=== PATIENT | female | born 1985 | race Caucasian/White ===

== ENCOUNTER 2024-08-11 20:13 | Emergency (ER) | payer OTHER ==
[2024-08-11 20:20] VITALS: BP 85/58; PULSE 125; RESP 20; TEMP 97.7
[2024-08-11] MEDS ORDERED: SODIUM CHLORIDE 0.9% 1,000 ML IV STA (20:48)
[2024-08-11] MEDS ORDERED: KETOROLAC 15 MG/ML 1 ML VIAL IVP STA (20:48)
--- NOTE | 2024-08-11 20:50 | ED ---
General Adult HPI - General Chief complaint: Upper Respiratory Infection Stated complaint: chest pain Time Seen by Provider: 08/11/24 20:29 Source: patient, RN notes reviewed Mode of arrival: ambulatory Limitations: no limitations - History of Present Illness Initial comments: This is a 38-year-old female presenting for multiple complaints. Endorses right chest tightness and shortness of breath x 2 weeks. Endorses cough with phlegm production x 1 day along with associated right chest pain that worsens with coughing/inspiration. Also mentions headache described as "brain freeze" x 1 day. Endorses dizziness and vision changes with position change when standing. States her right foot has been asleep for the past 2 hours. Endorses sharp, constant, diffuse abdominal pain (9/10) x 1 hour with decreased appetite. Denies fever, chills, fatigue, radiating pain, diaphoresis, hemoptysis, extremity weakness, upper extremity or facial paresthesia, N/V/D, hematochezia, melena. Onset/Timin -: week(s) Location: abdomen Radiation: non-radiation Severity scale (1-10): 9 Quality: sharp Consistency: constant Associated Symptoms: cough, headaches, loss of appetite, shortness of breath Treatments Prior to Arrival: none - Related Data Previous Rx's Medication Instructions Recorded Amoxic-Pot Clav 875-125Mg 1 tab PO BID 1 Days #14 tab 08/11/24 [Augmentin 875-125] Azithromycin [Zithromax Z Pack] 0 tab PO DIRECTED #6 tab 08/11/24 Allergies Allergy/AdvReac Type Severity Reaction Status Date / Time No Known Allergies Allergy Verified 08/11/24 20:20 Review of Systems ROS Statement: Those systems with pertinent positive or pertinent negative responses have been documented in the HPI. ROS Other: All systems not noted in ROS Statement are negative. Past Medical History Past Medical History: No Reported History History of Any Multi-Drug Resistant Organisms: MRSA Date of last positivie culture/infection: 2021 MDRO Source:: right elbow Past Surgical History: No Surgical Hx Reported Past Psychological History: No Psychological Hx Reported Smoking Status: Current every day smoker Past Alcohol Use History: None Reported Past Drug Use History: None Reported General Exam Limitations: no limitations General appearance: alert, in no apparent distress Head exam: Present: atraumatic, normocephalic, normal inspection Eye exam: Present: normal appearance, PERRL, EOMI. Absent: scleral icterus, conjunctival injection, periorbital swelling ENT exam: Present: normal exam, mucous membranes moist Neck exam: Present: normal inspection. Absent: tenderness, meningismus, lymphadenopathy Respiratory exam: Present: normal lung sounds bilaterally, decreased breath sounds (Decreased lung sounds in right upper lobe). Absent: respiratory distress, wheezes, rales, rhonchi, stridor, accessory muscle use, prolonged expiratory Cardiovascular Exam: Present: regular rate, normal rhythm, normal heart sounds. Absent: systolic murmur, diastolic murmur, rubs, gallop, clicks GI/Abdominal exam: Present: soft, tenderness (Diffuse tenderness especially LUQ and epigastric region), rebound, rigid, diminished bowel sounds, hypoactive bowel sounds. Absent: distended, guarding Extremities exam: Present: normal inspection, full ROM, normal capillary refill, other (Bilateral upper extremity neurovascular and motor function intact with strength 5/5 with all major muscle groups. Patient notes some paresthesia of right foot but otherwise bilateral neurovascular and motor function intact). Absent: tenderness, pedal edema, joint swelling, calf tenderness Back exam: Present: normal inspection Neurological exam: Present: alert, oriented X3, CN II-XII intact, other ([place] stroke negative. Cerebellar testing normal.) Psychiatric exam: Present: normal affect, normal mood Skin exam: Present: warm, dry, intact, normal color. Absent: rash Course Vital Signs 08/11/24 20:14 Temperature 97.7 F Pulse Rate 125 H Respiratory 20 Rate Blood Pressure 85/58 O2 Sat by Pulse 98 Oximetry Medical Decision Making - Medical Decision Making Was pt. sent in by a medical professional or institution (, PA, EVENTS ADMINISTRATIVE ASSISTANT, urgent care, hospital, or prison...) When possible be specific @ -No Did you speak to anyone other than the patient for history (EMS, parent, family, police, friend...)? What history was obtained from this source @ -No Did you review nursing and triage notes (agree or disagree)? Why? @ -I reviewed and agree with nursing and triage notes Were old charts reviewed (outside hosp., previous admission, EMS record, old EKG, old radiological studies, urgent care reports/EKG's, prison records)? Report findings @ -No old charts were reviewed Differential Diagnosis (chest pain, altered mental status, abdominal pain women, abdominal pain men, vaginal bleeding, weakness, fever, dyspnea, syncope, headache, dizziness, GI bleed, back pain, seizure, CVA, palpatations, mental health, musculoskeletal)? @ -Differential Abdominal Pain Women: Appendicitis, Cholecystitis, diverticulosis, ischemic bowel, pancreatitis, hepatitis, UTI, gastroenteritis, AAA, incarcerated hernia, bowel obstruction, constipation, inflammatory bowel, hepatitis, peptic ulcer disease, splenic infarction, perforated viscus, vulvitis, ovarian torsion, PID, kidney stone, placenta abruption, this is not meant to be an all-inclusive list Differential Chest Pain: Stable Angina, Unstable Angina, STEMI, NSTEMI Aortic Dissection, Pneumothorax, Musculoskeletal, Esophageal Spasm GERD, Cholecystitis, Pancreatitis, Zoster, this is not meant to be an all-inclusive list. EKG interpreted by me (3pts min.). @ -Sinus tachycardia with LVH and without ST deviation or T wave inversion. Ventricular rate 110 bpm, ABIGAIL 120 ms, QRS 74 ms, QTc 390 ms. X-rays interpreted by me (1pt min.). @ -CXR shows large wedge-shaped peripheral consolidation of the right middle lung and upper lobe and airspace opacity over bilateral lower lung zones. Pneumonia and aspiration consideration advised. Dilation of the upper colon and left upper quadrant suggest focal ileus or distal colonic obstruction. CT interpreted by me (1pt min.). @ -None done U/S interpreted by me (1pt. min.). @ -None done What testing was considered but not performed or refused? (CT, X-rays, U/S, labs)? Why? @ -None What meds were considered but not given or refused? Why? @ -None Did you discuss the management of the patient with other professionals (professionals i.e. , PA, EVENTS ADMINISTRATIVE ASSISTANT, lab, RT, psych nurse, social work specialist, assistant floor covering printer, teacher, national service officer, onsite case manager)? Give summary @ -No Was smoking cessation discussed for >3mins.? @ -No Was critical care preformed (if so, how long)? @ -No Were there social determinants of health that impacted care today? How? (Homelessness, low income, unemployed, alcoholism, drug addiction, transportation, low edu. Level, literacy, decrease access to med. care, halfway, rehab)? @ -No Was there de-escalation of care discussed even if they declined (Discuss DNR or withdrawal of care, Hospice)? DNR status @ -No What co-morbidities impacted this encounter? (DM, HTN, Smoking, COPD, CAD, Cancer, CVA, ARF, Chemo, Hep., AIDS, mental health diagnosis, sleep apnea, morbid obesity)? @ -None Was patient admitted / discharged? Hospital course, mention meds given and route, prescriptions, significant lab abnormalities, going to OR and other pertinent info. @ -RN attempted to start IV on patient who became upset when nurse attempted to start IV in patient's right AC, stating she has had surgical work in that area and would prefer to have IV placed on forearm or other location becoming anxious and tearful. Nurse states she is unable to find pain elsewhere on patient's arm. Another RN attempted IV access but was also unsuccessful. Unable to perform IV ultrasound due to lack of availability at this time of day. Cepheid test negative. CXR shows large wedge-shaped peripheral consolidation of the right middle lung and upper lobe and airspace opacity over bilateral lower lung zones. Pneumonia and aspiration consideration advised. Dilation of the upper colon and left upper quadrant suggest focal ileus or distal colonic obstruction. Large amount of lab work initially ordered based on numerous complaints presented by patient to determine etiology with IV access remain difficult. Tests able to be completed were performed with patient eloped/left AMA prior to further workup, evaluation and treatment. Patient was called, stating she was in waiting room. Advised patient to return based on discovery so far of wedge- shaped peripheral consolidation and indication, in the very least, of pneumonia and focal ileus/colonic obstruction. Advised prompt treatment to address these issues could potentially be fatal. Patient states she understands, stating she will return tomorrow for further workup and treatment. Attempted electronically sending p.o. antibiotics to patient's pharmacy but no pharmacy was chosen by patient while in triage. Discussed patient with Dr. Comer. Undiagnosed new problem with uncertain prognosis? @ -No Drug Therapy requiring intensive monitoring for toxicity (Heparin, Nitro, Insulin, Cardizem)? @ -No Were any procedures done? @ -No Diagnosis/symptom? @ -Possible lobar infarction, pneumonia, ileus Acute, or Chronic, or Acute on Chronic? @ -Acute Uncomplicated (without systemic symptoms) or Complicated (systemic symptoms)? @ -Complicated Side effects of treatment? @ -No Exacerbation, Progression, or Severe Exacerbation? @ -No Poses a threat to life or bodily function? How? (Chest pain, [place], [place], pneumonia, PE, COPD, DKA, ARF, appy, cholecystitis, CVA, Diverticulitis, Homicidal, Suicidal, threat to staff... and all critical care pts) @ -Lobar infarction, pneumonia possibly causing respiratory failure, sepsis - Lab Data Lab Results 08/11/24 Range/Units 20:20 Influenza Type A (PCR) Not Detected (Not Detectd) Influenza Type B (PCR) Not Detected (Not Detectd) RSV (PCR) Not Detected (Not Detectd) SARS-CoV-2 (PCR) Not Detected (Not Detectd) Disposition Clinical Impression: Pneumonia Disposition: LEFT AGAINST MEDICAL ADVICE Condition: Undetermined Prescriptions: Amoxic-Pot Clav 875-125Mg [Augmentin 875-125] 1 tab PO BID 1 Days #14 tab Azithromycin [Zithromax Z Pack] 0 tab PO DIRECTED #6 tab Is patient prescribed a controlled substance at d/c from ED?: No Referrals: None,Stated [Primary Care Provider] - 1-2 days Time of Disposition: 22:35
[2024-08-11] MEDS ORDERED: MORPHINE SULFATE 4 MG/ML SYRINGE IVP STA (20:56)
[2024-08-11 21:16] LABS: Influenza A Not Detected (Not Detectd); Influenza B Not Detected (Not Detectd); RSV Not Detected (Not Detectd)
--- NOTE | 2024-08-12 | XR ---
EXAM: XR Chest, 2 Views CLINICAL HISTORY: Chest pain, dyspnea TECHNIQUE: Frontal and lateral views of the chest. COMPARISON: No relevant prior studies available. FINDINGS: Lungs: Large wedge-shaped peripheral consolidation on over right middle lung zone, likely in upper lobe, small amount of airspace opacities over bilateral lower lung zones. Pleural space: Unremarkable. Mediastinum: Unremarkable. Normal mediastinal contour. Bones/joints: No acute findings. Upper abdomen: Mild dilatation of the colon in left upper quadrant measuring up to 6.3 cm. IMPRESSION: 1. Large wedge-shaped peripheral consolidation on over right middle lung zone, in upper lobe. Small amount of airspace opacities over bilateral lower lung zones. Pneumonia and aspiration should be considered. Follow- up to resolution is recommended to rule out potential underlying neoplastic etiologies. 2. Mild dilatation of the colon in left upper quadrant suggest focal ileus versus distal colonic obstruction
== END 2024-08-11 22:30 | disposition left against medical advice (07) ==
LOC: EC 20:13
DX: J18.9 Pneumonia, unspecified organism (principal); R00.0 Tachycardia, unspecified; Z53.29 Procedure and treatment not carried out because of patient's decision for other reasons; F17.200 Nicotine dependence, unspecified, uncomplicated
CPT/HCPCS: 71046; 87636; 93005; 99285